=== PATIENT | male | born 1945 | race Caucasian/White ===

== ENCOUNTER 2022-02-20 09:55 | Outpatient (CLI) | payer MEDICARE, BC, SELFPAY ==
--- NOTE | 2022-02-20 10:15 | CRLHL7_ITS ---
For Patients: As a result of the Century Cures Act, medical imaging exams and procedure reports are released immediately into your electronic medical record. You may view this report before your referring provider. If you have questions, please contact your health care provider. INDICATION: Left-sided back and leg pain. COMPARISON: None. TECHNIQUE: Sagittal T1, T2, and STIR sequences. Axial T1 and T2 weighted sequences. FINDINGS: Normal vertebral body alignment. No fractures. No vertebral body loss of height. No ligamentous injury. No suspicious osseous lesions. Normal conus terminates at L1. Lumbar spondylosis. T12-L1: No spinal canal or neural foraminal narrowing. L1-2: Disc degeneration diffuse disc bulge. [id number] narrowing of spinal canal. No neural foraminal narrowing. L2-3: Disc degeneration and loss disc height. Posterior disc bulging disc osteophyte complex. Severe narrowing of spinal canal. Mild to moderate narrowing of the bilateral foramina. Most arthropathy. L3-4: Disc degeneration. Loss disc height. Diffuse disc bulge eccentric to the right. Mild narrowing of spinal canal. Right subarticular recess narrowing potential impingement of the traversing right L4 nerve root. Mild narrowing of the bilateral foramina. Mild facet arthropathy. L4-5: Disc degeneration. Loss disc height. Diffuse disc bulge. Superimposed right subarticular disc extrusion measuring 6 mm in diameter with 9 mm of cephalad migration. Moderate narrowing of spinal canal. The disc extrusion impinges upon the traversing to exiting portion of the right L4 nerve root. Moderate severe narrowing of the bilateral foramina. Potential impingement of the exiting L4 nerve roots. L5-S1: Disc degeneration. Diffuse disc bulge eccentric to the left. No narrowing of spinal canal. Focal narrowing of the left subarticular recess with potential impingement of the traversing left S1 nerve root. Moderate right and moderate severe left neural foraminal narrowing. Potential impingement of the exiting left L5 nerve root. Mild os arthropathy. Normal visualized SI joints. IMPRESSION: 1. Normal alignment. No fractures. 2. Lumbar spondylosis. 3. At L1-2, mild to moderate narrowing of the spinal canal. 4. At L2-3, severe narrowing of spinal canal. Mild to moderate narrowing of the bilateral neural foramina 5. At L3-4, mild narrowing of spinal canal. Right subarticular recess narrowing with potential impingement of the traversing right L4 nerve root. 6. At L4-5, diffuse disc bulging right subarticular disc extrusion with cephalad migration. Moderate narrowing of spinal canal. Impingement of the traversing the exiting portions of the right L4 nerve root. Moderate severe narrowing of the bilateral foramina 7. At L5-S1, potential impingement of the traversing left S1 nerve root. Moderate right and moderate severe left neural foraminal narrowing. Potential impingement of the exiting left L5 nerve. Dictated by Daniel Sethi MD @ 02/20/2022 1:22:00 PM (Electronically Signed)
== END 2022-02-20 09:56 | disposition home or self-care (01) ==
LOC: MRI 09:58
PROVIDERS: PCP Family Medicine; Visit Provider Student in an Organized Health Care Education/Training Program
DX: M54.16 Radiculopathy, lumbar region (principal); M51.36 Other intervertebral disc degeneration, lumbar region; M47.896 Other spondylosis, lumbar region
CPT/HCPCS: 72148

== ENCOUNTER 2022-03-21 13:40 | Outpatient (CLI) | payer MEDICARE, BC, SELFPAY | END 2022-03-21 13:41 | disposition home or self-care (01) | LOC: INJ CL 13:40 | PROVIDERS: PCP Family Medicine; Visit Provider Family Medicine | DX: M54.16 Radiculopathy, lumbar region (principal); M51.36 Other intervertebral disc degeneration, lumbar region | CPT/HCPCS: 64483; J1100; Q9966 ==